=== PATIENT | male | born 1985 | race Caucasian/White ===

== ENCOUNTER 2018-01-17 13:07 | Emergency (ER) | payer SELFPAY ==
[2018-01-17 13:21] VITALS: BP 128/73; PULSE 105; RESP 15; TEMP 36.9; O2SAT 97; BMI 22.4
--- NOTE | 2018-01-17 13:30 | PC.NURSE ---
Pt states he was possibly exposed to herpes. States he has no lesions, no discharge, no symptoms at all. Wants to be tested.
--- NOTE | 2018-01-17 16:06 | ED_ITS ---
HPI - Male Genitourinary <DASIA Child - Last Filed: 01/17/18 21:55> General Chief complaint: Urogenital-Male Stated complaint: Wants a personal checkup Time Seen by Provider: 01/17/18 14:45 Source: patient Mode of arrival: ambulatory Limitations: no limitations History of Present Illness HPI Narrative: 32-year-old healthy male that is an everyday smoker here for concern about possible STD exposure. He states that once or twice over the past 8 months he has had a outbreak where there was a sore to his left suprapubic region. he states he thought he may have a small blister to that area that only lasted for a few days and then went away. He states that it was tender to the area when he had this blister. last time this occurred was approximately 3 months ago. He denies any symptoms at this time. No urinary symptoms. No penile discharge no skin lesions. he states that his significant other is positive for herpes. he desires to have STD testing at done at this time no other concerns or complaints. Related Data Home Medications Medication Instructions Recorded Confirmed No Known Home Medications 01/17/18 01/17/18 Allergies Allergy/AdvReac Type Severity Reaction Status Date / Time No Known Drug Allergies Allergy Verified 01/17/18 13:21 Review of Systems <DASIA Child - Last Filed: 01/17/18 21:55> Review of Systems Desires to have STD testing All systems reviewed & are unremarkable except as noted in HPI and below Constitutional Denies chills, Denies fever(s), Denies lethargy and Denies weakness Eyes Denies change in vision, Denies eye discharge, Denies irritation and Denies loss of vision ENT Ears, Nose, Mouth, and Throat: Denies change in voice, Denies neck pain and Denies sore throat Cardiovascular Denies chest pain, Denies irregular heart rhythm, Denies lightheadedness, Denies palpitations, Denies dyspnea, Denies dyspnea on exertion and Denies orthopnea Respiratory Denies cough, Denies dyspnea, Denies dyspnea on exertion and Denies wheezing Gastrointestinal Gastrointestinal: Denies abdominal pain, Denies change in bowel habits, Denies diarrhea, Denies nausea and Denies vomiting Genitourinary Denies hematuria, Denies flank pain, Denies urinary incontinence and Denies urinary urgency Musculoskeletal Denies neck pain Neurologic Denies confusion, Denies loss of vision and Denies weakness Psychiatric Denies anxiety, Denies confusion, Denies depression, Denies homicidal ideation and Denies suicidal ideation Endocrine Denies palpitations Hematologic/Lymphatic Denies easy bruising Allergic/Immunologic Denies wheezing Exam <DASIA Child - Last Filed: 01/17/18 21:55> Initial Vital Signs Initial Vital Signs: Vital Signs Temperature 98.4 F 01/17/18 13:21 Pulse Rate 105 H 01/17/18 13:21 Respiratory Rate 15 01/17/18 13:21 Blood Pressure 128/73 01/17/18 13:21 Pulse Oximetry 97 01/17/18 13:21 Const General: cooperative and well developed Nutritional Appearance: well nourished Orientation: alert, awake, oriented x3 and not confused HENMT Mouth: oral mucosae normal and oropharynx normal Eyes Conjunctivae: conjunctivae normal Sclera: sclerae normal Pupils: PERRL EOM: EOM intact bilaterally Neck Neck: normal visual inspection, trachea midline, No lymphadenopathy, No midline deformity and No JVD Lymphatic: No lymphedema Resp Effort & Inspection: normal respiratory effort, able to speak in complete sentences, no respiratory distress and no use of accessory muscles Auscultation: clear to auscultation bilaterally, no rales, no rhonchi and no wheezes Cardio Rate: regular rate Rhythm: regular rhythm Heart Sounds: no click, no gallops, no murmurs and no rubs Pulses: normal peripheral pulses GI Inspection: non-distended Palpation: soft, no hepatosplenomegaly, No guarding, No pulsatile mass and No tender Auscultation: normal bowel sounds External: normal external exam and uncircumcised Penis: normal penis Meatus: meatus normal Scrotum: scrotum normal Testes: normal Skin General: no rashes or lesions noted, No jaundice and No petechiae Neuro General: alert, oriented x3, gait normal and no focal motor deficits Speech: speech normal <Kelle Hunt MD - Last Filed: 01/18/18 08:04> Initial Vital Signs Initial Vital Signs: Vital Signs Temperature 98.4 F 01/17/18 13:21 Pulse Rate 105 H 01/17/18 13:21 Respiratory Rate 15 01/17/18 13:21 Blood Pressure 128/73 01/17/18 13:21 Pulse Oximetry 97 01/17/18 13:21 Course <DASIA Child - Last Filed: 01/17/18 21:55> Orders Ordered: ED Orders 01/17/18 14:49 Urine Chlamydia Gonorrhea PCR Stat 01/17/18 15:28 HIV 1 and 2 Antibody Stat HSV 1 & 2 IgM AB Ref to Titer Stat Rapid Plasma Reagin Stat Vital Signs - 8 hr 01/17/18 16:56 Pulse Rate 61 Respiratory Rate 12 Blood Pressure [Left Arm] 120/64 Pulse Oximetry 100 <Kelle Hunt MD - Last Filed: 01/18/18 08:04> Orders Ordered: ED Orders 01/17/18 14:49 Urine Chlamydia Gonorrhea PCR Stat 01/17/18 15:28 HIV 1 and 2 Antibody Stat HSV 1 & 2 IgM AB Ref to Titer Stat Rapid Plasma Reagin Stat Vital Signs - 8 hr 01/17/18 16:56 Pulse Rate 61 Respiratory Rate 12 Blood Pressure [Left Arm] 120/64 Pulse Oximetry 100 MDM - Male Genitourinary <DASIA Child - Last Filed: 01/17/18 21:55> Lab Data Lab Results 01/17/18 01/17/18 Range/Units 14:49 15:28 Ur Chlamydia DNA (PCR) Not detected HIV 1&2 Antibody Negative (NEGATIVE) N gonorrhoeae DNA (PCR) Not detected MDM Narrative Medical decision making narrative: no abnormality seen on exam today. urine Chlamydia and gonorrhea were obtained And were negative. HIV antibodies were negative. RPR and HSV labs are pending. follow-up the next few days for re- evaluation and results of pending labs. For any worsening symptoms return emergency room. <Kelle Hunt MD - Last Filed: 01/18/18 08:04> Lab Data Lab Results 01/17/18 01/17/18 Range/Units 14:49 15:28 Ur Chlamydia DNA (PCR) Not detected HIV 1&2 Antibody Negative (NEGATIVE) N gonorrhoeae DNA (PCR) Not detected Discharge Plan Departure Patient Disposition: Home Clinical Impression: Possible exposure to STD Discharge Date/Time: 01/17/18 17:03 Interventions: ED Discharge Assessment Last Done: 01/17/18 17:02 Instructions: Facts About Sexually Transmitted Infections Activity Restrictions/Additional Instructions: no abnormality seen on exam today. Chlamydia and gonorrhea labs were obtained and were negative. HIV antibodies were negative. syphilis and herpes labs are pending. Follow-up the next few days for re-evaluation and results of pending labs. For any worsening symptoms return emergency room. Prescriptions: No Action No Known Home Medications RF: 0 Referrals: Keesha Main ARNP [Primary Care Provider] -
[2018-01-17 16:32] LABS: HIV 1 and 2 Antibody NEGATIVE (NEGATIVE)
[2018-01-17 16:37] LABS: Urine N gonorrhoeae NOT DETECTED
[2018-01-17 16:51] LABS: Urine Chlamydia NOT DETECTED
[2018-01-17 16:56] VITALS: BP 120/64; PULSE 61; RESP 12; O2SAT 100
[2018-01-19 12:46] LABS: HSV 1 IgM Screen Negative (Negative); HSV 2 IgM Screen Negative (Negative)
[2018-01-24 12:04] LABS: Rapid Plasma Reagin NON-REACTIVE
== END 2018-01-17 17:03 | disposition home or self-care (01) ==
PROVIDERS: Emergency Provider Nurse Practitioner Family; PCP Registered Nurse Women's Health Care, Ambulatory
DX: Z70.2 Counseling related to sexual behavior and orientation of third party (principal)
CPT/HCPCS: 36415; 86592; 86694; 86703; 87491; 87591; 99282; 99283

== ENCOUNTER 2019-12-07 17:10 | Emergency (ER) | payer OTHER, SELFPAY ==
[2019-12-07 17:46] VITALS: BMI 23.1
[2019-12-07 17:53] VITALS: BP 123/72; PULSE 78; RESP 15; TEMP 36.8; O2SAT 98
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
[2019-12-07] MEDS: HYDROCODONE/ACET 5/325 PREPACK 1 BOTTLE MISC (20:43)
[2019-12-07 20:50] VITALS: BP 120/76; PULSE 76; RESP 16; O2SAT 98
== END 2019-12-07 20:51 | disposition home or self-care (01) ==
PROVIDERS: Emergency Provider Emergency Medicine; PCP Registered Nurse Women's Health Care, Ambulatory
DX: S16.1XXA Strain of muscle, fascia and tendon at neck level, initial encounter (principal); V49.9XXA Car occupant (driver) (passenger) injured in unspecified traffic accident, initial encounter
CPT/HCPCS: 72125; 99283; 99284

== ENCOUNTER 2021-10-01 07:07 | Emergency (ER) | payer SELFPAY ==
[2021-10-01] VITALS (7 sets, daily range): BP systolic 111–143; BP diastolic 70–90; PULSE 77–100; RESP 16–20; TEMP 36.6; O2SAT 92–98; BMI 26.5
--- NOTE | 2021-10-01 07:15 | ED.HEATRA ---
HPI - Head Injury General Chief complaint: Fall Stated complaint: fell and hit his head Time Seen by Provider: 10/01/21 07:15 History of Present Illness HPI Narrative: 36-year-old male former smoker with noncontributory medical history presents for evaluation of a head injury suffered this morning. He woke up in his normal state of health and states he got out of the shower stepped on wet tile and fell backwards striking the back of his head. He was knocked out for least 20 minutes and upon waking felt significant headache, nausea and had ringing in his ears. He does not take blood thinners and denies other injury. He has headache and feels a bit groggy and confused, he does not have full recall of the events immediately following the event. He denies any chest pain or shortness of breath. He denies any abdominal pain or extremity issues. He denies any blurred or double vision Related Data Previous Rx's Medication Instructions Recorded cyclobenzaprine 10 mg tablet 10 mg PO TID PRN muscle spasm #14 12/07/19 tabs hydrocodone 5 mg-acetaminophen 325 1 tab PO Q4-6H PRN pain #10 tabs 12/07/19 mg tablet ketorolac 10 mg tablet 10 mg PO Q6H PRN pain #14 tabs 12/07/19 Allergies Allergy/AdvReac Type Severity Reaction Status Date / Time No Known Drug Allergies Allergy Verified 01/17/18 13:21 Review of Systems Review of Systems Narrative: GENERAL: See HPI HEENT: Denies sinus pain, ear pain, sore throat, difficulty swallowing, dizziness. RESPIRATORY: Denies dyspnea, cough, wheezing, hemoptysis, sputum. CARDIOVASCULAR: Denies chest pain, palpitations, orthopnea, edema, GASTROINTESTINAL: Denies nausea, vomiting, abdominal pain, diarrhea, constipation, melena. : Denies dysuria, frequency, incontinence, hematuria, urinary retention. MUSCULOSKELETAL: denies weakness, joint pain, or bony pain SKIN: Denies rash, skin lesions, or other NEUROLOGIC: See HPI PSYCHIATRIC: No concerning psychosocial issues. 12 point review of systems is negative except for those stated above Patient History Social History Smoking Status: Former smoker Smoking Status: Former smoker alcohol intake frequency: 3 or more drinks per day Substance Use Type: does not use Exam Narrative Exam Narrative: GENERAL: [36] year old patient appears stated age. Well-developed patient, in mild distress. Slow to respond, slightly confused, GCS 14 HEAD: Contusion on right occiput with superficial abrasions, no active bleeding, evidence of depressed skull fracture EYES: Pupils equal round and reactive. No hyphema Extraocular motions intact. No scleral icterus. No injection or drainage. ENT: Nose without bleeding, purulent drainage. No nasal septal hematoma Throat without erythema, tonsillar hypertrophy or exudate. Airway patent. NECK: Trachea midline. Non tender CARDIOVASCULAR: Regular rate and rhythm without murmurs, gallops, or rubs. RESPIRATORY: Clear to auscultation. Breath sounds equal bilaterally. No wheezes, rales, or rhonchi. GASTROINTESTINAL: Abdomen soft, non-tender, nondistended. EXTREMITIES: No edema or joint tenderness. BACK: Nontender without deformity or crepitance. No flank tenderness. NEURO: AOx3. SKIN: No rash or erythema of visible areas Initial Vital Signs Initial Vital Signs: Vital Signs Temperature 98 F 10/01/21 07:10 Pulse Rate 100 H 10/01/21 07:10 Respiratory Rate 18 10/01/21 07:10 Blood Pressure 143/90 H 10/01/21 07:10 Pulse Oximetry 98 10/01/21 07:10 Oxygen Delivery Method 10/01/21 07:[address] Head Rule Age <16 years old: No Patient on blood thinners: No Seizure after injury: No Exclusion: Patient NOT Excluded, Proceed to next steps GCS < 15 at 2 hr post trauma: Yes Suspected open or depressed skull fracture: No Any sign of basilar skull fracture (hemotympanum, raccoon eyes, Gomez's sign, CSF farzaneh-/rhinorrhea): No Two or more episodes of vomiting: No Age greater or equal to 65 years: No Retrograde amnesia to the event greater or equal to 30 min: No Dangerous Mechanism (pedestrian vs. mv, occupant ejected from mv, fall from >3 ft or > 5 stairs): No Recommendation: Consider CT. The [place] Head CT Rule cannot rule out need for Imaging. Course Orders Ordered: ED Orders 10/01/21 07:32 CT head/brain wo con Stat Vital Signs Vital signs: Vital Signs - 8 hr 10/01/21 07:10 10/01/21 07:30 10/01/21 07:46 Temperature 98 F Pulse Rate 100 H 97 H 91 H Respiratory Rate 18 16 Blood Pressure 143/90 H 143/90 H Pulse Oximetry 98 97 96 Oxygen Delivery Method Room Air 10/01/21 07:46 10/01/21 08:00 10/01/21 08:00 Temperature Pulse Rate 83 Respiratory Rate 20 Blood Pressure 129/80 117/74 Pulse Oximetry 95 Oxygen Delivery Method MDM - Head Injury Imaging Data CT scan - head: Radiologist's Impression: [address] [address] [address] Scan Report Signed Patient: Ronak Spence MR#: [id number] : 1985 Acct:[id number] Age/Sex: 36 / M Date of Service: 10/01/21 Loc: ED Accession Number: [id number] ?? Procedure: CT head/brain wo con Ordering Provider: Rober Sanon D.O. PROCEDURE:? CT HEAD/BRAIN WO CON ? INDICATIONS:? fall, head injury, syncope, confused, pain ? TECHNIQUE:? Noncontrast 4.5 mm thick angled axial sections acquired from the foramen magnum to the vertex, with coronal and sagittal reformats.? For radiation dose reduction, the following was used:? automated exposure control, adjustment of mA and/or kV according to patient size.? ? COMPARISON:? None. ? FINDINGS:? Image quality:? Excellent.? ? CSF spaces:? Basal cisterns are patent.? No extra-axial fluid collections.? Ventricles are normal in size and shape.? ? Brain:? No midline shift.? No intracranial masses or hemorrhage.? Vidal-white matter interface is normal.? ? Skull and face:? Calvarium and visualized facial bones are intact, without suspicious lesions.? ? Sinuses:? Visualized sinuses and mastoids are clear.? ? IMPRESSION:? No acute intracranial process. ? Dictated by: Minerva Hebert M.D. on 10/01/2021 at 8:57 ? ? Approved by: Minerva Hebert M.D. on 10/01/2021 at 8:58 ? Discharge Plan Departure Patient Disposition: Home Clinical Impression: Concussion, Contusion of scalp Instructions: Concussion Activity Restrictions/Additional Instructions: *You have been diagnosed with [fall with concussion and scalp contusion] *What to do: *Please continue to take your regular medications as directed. [ ] New medication prescriptions sent to your pharmacy: [ ] [ ] New medication written as a paper prescription [ ] No new medications given *Please follow up with your primary care provider in 2-3 days, call for an appointment. Let them know you were seen in the Emergency Department and that we ask that you be seen in follow up. We will electronically transmit a record of today's note if your PCP is in our system *If you do not have a primary care provider please contact the [facility] Resource line at [phone]. They will ask some questions about your medical history and help get you set up with a doctor in the community. *Return to Emergency Department if you should have any new, worsening or concerning symptoms, such as loss of vision, confusion, persistent vomiting, stroke-like symptoms such as extremity weakness or other concerning symptoms Prescriptions: No Action cyclobenzaprine 10 mg tablet 10 mg PO TID PRN (Reason: muscle spasm) Qty: 14 0RF hydrocodone-acetaminophen 5-325 mg tablet 1 tab PO Q4-6H PRN (Reason: pain) Qty: 10 0RF ketorolac 10 mg tablet 10 mg PO Q6H PRN (Reason: pain) Qty: 14 0RF Referrals: Keesha Main ARNP [Primary Care Provider] - Stand Alone Forms: Work Release Note
--- NOTE | 2021-10-01 07:32 | DI.CT.S_ITS ---
PROCEDURE: CT HEAD/BRAIN WO CON INDICATIONS: fall, head injury, syncope, confused, pain TECHNIQUE: Noncontrast 4.5 mm thick angled axial sections acquired from the foramen magnum to the vertex, with coronal and sagittal reformats. For radiation dose reduction, the following was used: automated exposure control, adjustment of mA and/or kV according to patient size. COMPARISON: None. FINDINGS: Image quality: Excellent. CSF spaces: Basal cisterns are patent. No extra-axial fluid collections. Ventricles are normal in size and shape. Brain: No midline shift. No intracranial masses or hemorrhage. Vidal-white matter interface is normal. Skull and face: Calvarium and visualized facial bones are intact, without suspicious lesions. Sinuses: Visualized sinuses and mastoids are clear. IMPRESSION: No acute intracranial process. Dictated by: Minerva Hebert M.D. on 10/01/2021 at 8:57 Approved by: Minerva Hebert M.D. on 10/01/2021 at 8:58
== END 2021-10-01 09:42 | disposition home or self-care (01) ==
PROVIDERS: Emergency Provider Emergency Medicine; PCP Registered Nurse Women's Health Care, Ambulatory
DX: S06.0X0A Concussion without loss of consciousness, initial encounter (principal); S00.03XA Contusion of scalp, initial encounter; W18.2XXA Fall in (into) shower or empty bathtub, initial encounter
CPT/HCPCS: 70450; 99283; 99284

== ENCOUNTER 2021-12-13 01:51 | Emergency (ER) | payer SELFPAY ==
--- NOTE | 2021-12-13 01:58 | ED.EXTPRO ---
HPI - Extremity Problem General Chief complaint: Extremity Problem,Nontraumatic Stated complaint: Both legs swollan Time Seen by Provider: 12/13/21 01:54 History of Present Illness HPI Narrative: 36-year-old male former smoker without any significant chronic medical history presents with bilateral lower extremity edema that has been present for at least 1 week. He denies any recent travel or injury. He has no chest pain or shortness of breath. He denies any fever or chills. He states that the swelling seems to improve when he is not at work where he seems to be on his feet for 9-10 hours per day. Additionally his symptoms improve when he elevates his lower extremities. States that he has never had this problem before but it seems to correlate with him switching to a new job. 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 Additionally, he drinks upwards of 1 gal of water per day and is on his feet upwards of 10 hours per day. He is otherwise well and free of complaint as stated denies dizziness, weakness or lightheadedness. No chest pain shortness of breath or cough and no fever or chills Related Data Previous Rx's Medication Instructions Recorded cyclobenzaprine 10 mg tablet 10 mg PO TID PRN muscle spasm #14 12/07/19 tabs hydrocodone 5 mg-acetaminophen 325 1 tab PO Q4-6H PRN pain #10 tabs 12/07/19 mg tablet ketorolac 10 mg tablet 10 mg PO Q6H PRN pain #14 tabs 12/07/19 furosemide 40 mg tablet (Lasix) 40 mg PO DAILY #4 tabs 12/13/21 Allergies Allergy/AdvReac Type Severity Reaction Status Date / Time No Known Drug Allergies Allergy Verified 01/17/18 13:21 Review of Systems Review of Systems Narrative: GENERAL: Denies chills, fatigue, malaise, fever, sweats. HEENT: Denies sinus pain, ear pain, sore throat, difficulty swallowing, dizziness. RESPIRATORY: Denies dyspnea, cough, wheezing, hemoptysis, sputum. CARDIOVASCULAR: See HPI GASTROINTESTINAL: Denies nausea, vomiting, abdominal pain, diarrhea, constipation, melena. : Denies dysuria, frequency, incontinence, hematuria, urinary retention. MUSCULOSKELETAL: denies weakness, joint pain, or bony pain SKIN: Denies rash, skin lesions, or other NEUROLOGIC: Denies weakness, headache, numbness, change in speech, confusion, seizures, incoordination. PSYCHIATRIC: No concerning psychosocial issues. 12 point review of systems is negative except for those stated above Patient History Social History Smoking Status: Former smoker Smoking Status: Former smoker alcohol intake frequency: 3 or more drinks per day Substance Use Type: does not use Exam Narrative Exam Narrative: GENERAL: [36] year old patient appears stated age. Well-developed patient, in mild distress. HEAD: Atraumatic. Normocephalic. EYES: Pupils equal round and reactive. Extraocular motions intact. No scleral icterus. No injection or drainage. ENT: Nose without bleeding, purulent drainage. Throat without erythema, tonsillar hypertrophy or exudate. Airway patent. NECK: Trachea midline. Non tender CARDIOVASCULAR: Regular rate and rhythm without murmurs, gallops, or rubs. RESPIRATORY: Clear to auscultation. Breath sounds equal bilaterally. No wheezes, rales, or rhonchi. GASTROINTESTINAL: Abdomen soft, non-tender, nondistended. EXTREMITIES: 1+ pitting edema bilateral lower extremities, no erythema or warmth, largely in the feet and ankles but extends up to the mid calf. BACK: Nontender without deformity or crepitance. No flank tenderness. NEURO: AOx3. SKIN: No rash or erythema of visible areas Initial Vital Signs Initial Vital Signs: Vital Signs Temperature 98 F 12/13/21 02:00 Pulse Rate 84 12/13/21 02:00 Respiratory Rate 18 12/13/21 02:00 Blood Pressure 139/89 12/13/21 02:00 Pulse Oximetry 98 12/13/21 02:00 Oxygen Delivery Method 12/13/21 02:00 Course Orders Ordered: ED Orders 12/13/21 02:20 Complete Blood Count AUTO DIFF Stat Comprehensive Metabolic Panel Stat D Dimer Stat NT-proBNP (BNP-Adult 18+) Stat 12/13/21 02:45 periph venous low extrem bi Stat Discontinued Medications Furosemide (Furosemide 40 Mg/4 Ml Vial) 40 mg IV NOW ONE Stop: 12/13/21 03:49 Last Admin: 12/13/21 03:53 Dose: 40 mg Vital Signs Vital signs: Vital Signs - 8 hr 12/13/21 02:00 Temperature 98 F Pulse Rate 84 Respiratory Rate 18 Blood Pressure 139/89 Pulse Oximetry 98 Oxygen Delivery Method Room Air MDM - Extremity (Nontraumatic) Lab Data Result diagrams: 12/13/21 02:20 12/13/21 02:20 Labs: Lab Results 12/13/21 12/13/21 12/13/21 Range/Units 02:20 02:20 02:20 WBC 4.3 L (4.5-11.0) X10^3/uL RBC 3.00 L (4.5-5.9) X10^6/uL Hgb 10.8 L (13.5-17.5) g/dL Hct 31.8 L (41-53) % MCV 106.2 H (80-100) fL MCH 36.2 H (26-34) PG MCHC 34.1 (30-36) % RDW 14.1 (11.6-14.8) % Plt Count 128 L (150-400) X10^3/uL Neut % (Auto) 59.0 (50-75) % Lymph % (Auto) 29.1 (25-40) % Edmunds % (Auto) 8.8 (3-14) % Eos % (Auto) 2.0 (2-4) % Baso % (Auto) 1.1 (0-2) % Neut # (Auto) 2500 (2807-0310) /uL Lymph # (Auto) 1200 (9788-0511) /uL Edmunds # (Auto) 400 (0-900) /uL Eos # (Auto) 100 (0-450) /uL Baso # (Auto) 0 (0-100) /uL D-Dimer 3247 H (<500) ng/ml Sodium 141 (137-145) mmol/L Potassium 3.5 (3.4-5.1) mmol/L Chloride 107 (98-107) mmol/L Carbon Dioxide 27 (22-32) mmol/L BUN 8 L (9-20) mg/dL Creatinine 0.72 (0.66-1.25) mg/dL Estimated GFR > 60 (>60) mL/min BUN/Creatinine Ratio 11.1 (6-22) Glucose 100 (70-100) mg/dL Calcium 7.9 L (8.4-10.2) mg/dL Total Bilirubin 0.4 (0.2-1.3) mg/dL AST 272 H (17-59) IU/L ALT 121 H (<50) IU/L Alkaline Phosphatase 112 (38-126) U/L NT-Pro-B Natriuret Pep 58 (<125) pg/mL Total Protein 6.6 (6.3-8.2) g/dL Albumin 3.8 (3.5-5.0) g/dL Globulin 2.8 (1.7-4.1) g/dL Albumin/Globulin Ratio 1.4 (1.0-2.8) MDM Narrative Medical decision making narrative: Patient with bilateral lower extremity swelling the absence of injury or other complaints such as chest pain or shortness of breath nor abdominal pain, nausea or vomiting. He is had rather significant dietary change in his on his feet frequently. Multiple diagnoses considered including heart and renal failure which would be unlikely given history, physical and labs. DVT considered but thought to be highly unlikely given lack of redness, warmth or pain in bilateral nature of findings, and when elevated D-dimer was noted bilateral lower extremity ultrasound was ordered which was unremarkable. We spent a long time with the bedside discussing the pros and cons of a more advanced workup including advanced imaging of chest abdomen and pelvis with IV contrast rule out clot or other obstructive process. In the end we agreed conservative measures with dietary change and a short course of diuretic with focus on elevating lower extremities. Extensive return precautions were discussed and questions have been answered to his apparent satisfaction Discharge Plan Departure Patient Disposition: Home Clinical Impression: Lower extremity edema Instructions: DI for Dependent Edema Activity Restrictions/Additional Instructions: *You have been diagnosed with [bilateral lower extremity, as we discussed this is likely a consequence of dietary change in being on your feet, however] *What to do: *Please continue to take your regular medications as directed. [x ] New medication prescriptions sent to your pharmacy: [[facility] ] [ ] New medication written as a paper prescription [ ] No new medications given *Try to avoid being on your feet for extended periods of time and elevate your legs above the level of your heart as often as you can *Try to limit pasta and sodium intake *If you do not have a primary care provider please contact the [facility] Resource line at [phone]. They will ask some questions about your medical history and help get you set up with a doctor in the community. *Return to Emergency Department if you should have any new, worsening or concerning symptoms, such as [fever greater than 101 F, shaking chills, worsening pain, persistent vomiting or other bothersome symptoms] Prescriptions: New furosemide [Lasix] 40 mg tablet 40 mg PO DAILY Qty: 4 0RF No Action cyclobenzaprine 10 mg tablet 10 mg PO TID PRN (Reason: muscle spasm) Qty: 14 0RF hydrocodone-acetaminophen 5-325 mg tablet 1 tab PO Q4-6H PRN (Reason: pain) Qty: 10 0RF ketorolac 10 mg tablet 10 mg PO Q6H PRN (Reason: pain) Qty: 14 0RF
[2021-12-13 02:00] VITALS: BP 139/89; PULSE 84; RESP 18; TEMP 36.6; O2SAT 98; BMI 24.4
[2021-12-13 02:40] LABS: Add Manual Diff / Slide Review NO; Basophils Absolute Auto 0 /uL (0-100); Basophils Percent Auto 1.1 % (0-2); D Dimer 3247 ng/ml (<500); Eosinophils Absolute Auto 100 /uL (0-450); Hematocrit 31.8 % (41-53); Hemoglobin 10.8 g/dL (13.5-17.5); Lymphocytes Absolute Auto 1200 /uL (1100-4500); Lymphocytes Percent Auto 29.1 % (25-40); Mean Corpuscular HGB Conc 34.1 % (30-36); Mean Corpuscular Hemoglobin 36.2 PG (26-34); Mean Corpuscular Volume 106.2 fL (80-100); Monocytes Absolute Auto 400 /uL (0-900); Monocytes Percent Auto 8.8 % (3-14); Neutrophils Absolute Auto 2500 /uL (1500-7000); Platelet Count 128 X10^3/uL (150-400); Red Cell Distribution Width 14.1 % (11.6-14.8); White Blood Cell Count 4.3 X10^3/uL (4.5-11.0)
[2021-12-13 02:45] LABS: Alanine Aminotransferase 121 IU/L (<50); Albumin 3.8 g/dL (3.5-5.0); Albumin Globulin Ratio 1.4 (1.0-2.8); Alkaline Phosphatase 112 U/L (38-126); Aspartate Aminotransferase 272 IU/L (17-59); BUN Creatinine Ratio 11.1 (6-22); Bilirubin Total 0.4 mg/dL (0.2-1.3); Blood Urea Nitrogen 8 mg/dL (9-20); Calcium 7.9 mg/dL (8.4-10.2); Carbon Dioxide 27 mmol/L (22-32); Chloride 107 mmol/L (98-107); Estimated Glomerular Filt Rate > 60 mL/min (>60); Globulin 2.8 g/dL (1.7-4.1); Glucose 100 mg/dL (70-100); HEMOLYSIS < 15 (0-50); Potassium 3.5 mmol/L (3.4-5.1); Sodium 141 mmol/L (137-145); Total Protein 6.6 g/dL (6.3-8.2)
--- NOTE | 2021-12-13 02:45 | DI.US.S_ITS ---
PROCEDURE: US PERIPH VENOUS LOW EXTREM BI INDICATIONS: PAIN, EDEMA TECHNIQUE: Real-time imaging, as well as color and pulse Doppler interrogation, were performed of the deep veins of both legs from the inguinal ligament to the popliteal fossa. COMPARISON: None. FINDINGS: Right: The common femoral, femoral and popliteal veins are normally compressible, and free of intraluminal thrombus. Color and pulse Doppler demonstrate normal phasic intravascular flow. There is normal augmentation response to distal compression maneuver. Left: The common femoral, femoral and popliteal veins are normally compressible, and free of intraluminal thrombus. Color and pulse Doppler demonstrate normal phasic intravascular flow. There is normal augmentation response to distal compression maneuver. IMPRESSION: Negative for deep venous thrombosis. Note: No significant discrepancy from the preliminary report. Dictated by: Anthony Monroe M.D. on 12/13/2021 at 7:17 Approved by: Anthony Monroe M.D. on 12/13/2021 at 7:17
[2021-12-13 02:52] LABS: NT-proBNP (BNP-Adult 18+) 58 pg/mL (<125)
[2021-12-13 03:06] VITALS: PULSE 65; O2SAT 98
[2021-12-13 03:30] VITALS: PULSE 70; O2SAT 98
[2021-12-13] MEDS: FUROSEMIDE 40 MG/4 ML VIAL IV (03:53)
[2021-12-13 04:00] VITALS: BP 123/77; PULSE 65; O2SAT 97
== END 2021-12-13 04:14 | disposition home or self-care (01) ==
PROVIDERS: Emergency Provider Emergency Medicine
DX: R60.0 Localized edema (principal)
CPT/HCPCS: 36415; 80053; 83880; 85025; 85379; 93970; 96374; 99284; J1940